=== PATIENT | female | born 1970 | race Caucasian/White ===

== ENCOUNTER → 2020-11-07 | Outpatient (CLI) | payer OTHER ==
--- NOTE | 2020-11-07 10:42 | Diagnostic Imaging Report ---
EXAMINATION: Right knee at 10:02 AM. INDICATION: Right knee pain. TECHNIQUE/COMPARISON: Three views were obtained. There are no prior studies available for comparison. FINDINGS: There is no fracture, dislocation, or acute bony abnormality evident. There are orthopedic fixation screws in the intercondylar notch and in the medial aspect of the proximal tibia. This appearance does suggest a prior ACL repair. The knee joint is fairly well-maintained. The soft tissues are unremarkable. IMPRESSION: 1. There is no evidence for an acute bony abnormality. 2. If there is clinical concern that the reconstructed ACL has been injured, then MRI would be recommended for additional study. Dictated by: Dictated on workstation # [id number]
== END ==
LOC: RAD FS 09:59
PROVIDERS: ATTEND Nurse Practitioner
DX: M25.561 Pain in right knee (principal)
CPT/HCPCS: 73562